=== PATIENT | male | born 1970 | race Hispanic/Latino ===

== ENCOUNTER 2016-10-25 20:41 | Observation (INO) | payer MEDICAID ==
[2016-10-25 20:57] VITALS: BMI 23.7
--- NOTE | 2016-10-25 21:13 | ED PDOC ---
Arrival/HPI - General Chief Complaint: Alcohol Ingestion Time Seen by Provider: 10/25/16 20:43 Historian: Patient - History of Present Illness Narrative History of Present Illness (Text): 10/25/16 21:10 Dionte Tapia is a 46 year old male who was brought to the emergency department via ambulance for public intoxication. Patient was found inebriated on the streets, nowhere to go, and was subsequently brought to the emergency department. Patient admits to drinking alcohol, but currently denies any somatic or psychological complaints. Patients states he feels fine and is insisting discharge. Symptom Onset: Gradual Severity Level: Mild Context: Street Past Medical History - Provider Review Nursing Documentation Reviewed: Yes - Infectious Disease Hx of Infectious Diseases: None - Tetanus Immunization Tetanus Immunization: Up to Date - Past Medical History Past Medical History: No Previous - Pulmonary Hx Asthma: Yes Hx Chronic Obstructive Pulmonary Disease (COPD): Yes - Hematological/Oncological Hx Hepatitis C: Yes - Psychiatric Hx Depression: No Hx Emotional Abuse: No Hx Physical Abuse: No Hx Substance Use: No - Past Surgical History Past Surgical History: No Previous - Anesthesia Hx Anesthesia: No - Suicidal Assessment Feels Threatened In Home Enviroment: No Family/Social History - Physician Review Nursing Documentation Reviewed: Yes Family/Social History: No Known Family HX Smoking Status: Heavy Smoker > 10 Cigarettes Daily Hx Alcohol Use: Yes (2 beers) Frequency of alcohol use: Few days per week Hx Substance Use: No Hx Substance Use Treatment: No Allergies/Home Meds Allergies/Adverse Reactions: Allergies No Known Allergies Allergy (Verified 06/16/13 14:58) Home Medications: Home Meds Medication Instructions Recorded Confirmed No Known Home Med 10/24/12 10/25/16 Review of Systems - Physician Review All systems were reviewed & negative as marked: Yes - Review of Systems Constitutional: Normal. absent: Fatigue, Fevers Respiratory: Normal. absent: SOB, Cough, Sputum Cardiovascular: Normal. absent: Chest Pain, Palpitations Gastrointestinal: absent: Abdominal Pain, Diarrhea, Nausea, Vomiting Neurological: Normal. absent: Headache, Dizziness Psychiatric: Normal, Other (intoxicated ) Physical Exam Vital Signs Reviewed: Yes Vital Signs Temp Pulse Resp BP Pulse Ox 10/25/16 21:14 98.2 F 102 H 16 108/67 97 Temperature: Afebrile Blood Pressure: Normal Pulse: Tachycardic Respiratory Rate: Normal Appearance: Positive for: Comfortable Pain Distress: None Mental Status: Positive for: Alert and Oriented X 3 - Systems Exam Head: Present: Atraumatic, Normocephalic Pupils: Present: PERRL Extroacular Muscles: Present: EOMI Conjunctiva: Present: Normal Mouth: Present: Moist Mucous Membranes Respiratory/Chest: Present: Clear to Auscultation, Good Air Exchange. No: Respiratory Distress, Accessory Muscle Use Cardiovascular: Present: Regular Rate and Rhythm, Normal S1, S2. No: Murmurs Abdomen: Present: Normal Bowel Sounds. No: Tenderness, Distention, Peritoneal Signs Upper Extremity: Present: Normal Inspection. No: Cyanosis, Edema Lower Extremity: Present: Normal Inspection. No: Edema Neurological: Present: GCS=15, CN II-XII Intact, Speech Normal, Motor Func Grossly Intact, Normal Sensory Function Skin: Present: Warm, Dry, Normal Color. No: Rashes Psychiatric: Present: Alert, Oriented x 3, Intoxicated Medical Decision Making ED Course and Treatment: 10/25/16 21:15 Impression: A 46 year old male who was brought to emergency department via ambulance for public intoxication. Differential Diagnosis included but are not limited to: alcohol intoxication. Progress Notes: 10/25/16 21:[address] patient on EDOBS for alcohol intoxication ED OBSERVATION Discharge: Yes Date of observation admission: 10/25/16 Time of observation admission: 21:10 - Observation admission statement Patient is being placed in observation because:: Alcohol intoxication - Goals of Observation Goals of observation are:: Pending sobriety and reevaluation - Progress Note Progress Note: 10/25/16 23:10 Patient resting comfortably with stable vitals. No new complaints. pending sobriety 10/26/16 01:10 Patient sleeping in the emergency room with stable vitals. No respiratory distress. 10/26/16 03:51 Patient is awake, alert and oriented X3. He is ambulatory in the emergency department with steady gait. Stable for discharge. - Scribe Statement The provider has reviewed the documentation as recorded by the Ruma Colmenares Provider Attestation: Provider Scribe Attestation: All medical record entries made by the Scribjamar were at my direction and personally dictated by me. I have reviewed the chart and agree that the record accurately reflects my personal performance of the history, physical exam, medical decision making, and the department course for this patient. I have also personally directed, reviewed, and agree with the discharge instructions and disposition. Disposition/Present on Arrival - Present on Arrival Any Indicators Present on Arrival: No History of DVT/PE: No History of Uncontrolled Diabetes: No Urinary Catheter: No History of Decub. Ulcer: No History Surgical Site Infection Following: None - Disposition Have Diagnosis and Disposition been Completed?: Yes Diagnosis: Alcohol intoxication Disposition: HOME/ ROUTINE Disposition Time: 03:48 Patient Problems: Current Active Problems Problem Status Onset Alcohol intoxication Acute Condition: GOOD
[2016-10-25 21:14] VITALS: RESP 16
[2016-10-26 04:32] VITALS: BP 114/82; PULSE 90; TEMP 98; O2SAT 100
== END 2016-10-26 03:48 | disposition home or self-care (01) ==
LOC: ED 20:41 → EROBSV 21:10
PROVIDERS: ADMIT Emergency Medicine; ATTEND Emergency Medicine
DX: F10.129 Alcohol abuse with intoxication, unspecified (principal)
CPT/HCPCS: 99284; G0378

== ENCOUNTER 2017-01-12 22:37 | Emergency (ER) | payer MEDICAID ==
[2017-01-12 22:37] VITALS: BMI 23.7
[2017-01-12 22:54] VITALS: TEMP 98.2
--- NOTE | 2017-01-12 23:13 | ED PDOC ---
Arrival/HPI - General Chief Complaint: Alcohol Ingestion Time Seen by Provider: 01/12/17 22:38 Historian: Patient - History of Present Illness Narrative History of Present Illness (Text): 01/12/17 23:12 A 46 year old male was brought in by EMS to the emergency department for alcohol intoxication. Patient admits to drinking alcohol tonight. Patient denies any other complaints at this time. Symptom Onset: Sudden Symptom Course: Unchanged Activities at Onset: Rest Associated Symptoms (Text): none Past Medical History - Provider Review Nursing Documentation Reviewed: Yes - Infectious Disease Hx of Infectious Diseases: None - Tetanus Immunization Tetanus Immunization: Up to Date - Past Medical History Past Medical History: No Previous - Cardiac Hx Cardiac Disorders: No - Pulmonary Hx Asthma: Yes Hx Chronic Obstructive Pulmonary Disease (COPD): Yes - Neurological Hx Neurological Disorder: No - HEENT Hx HEENT Disorder: No - Renal Hx Renal Disorder: No - Endocrine/Metabolic Hx Endocrine Disorders: No - Hematological/Oncological Hx Hepatitis C: Yes - Integumentary Hx Dermatological Disorder: No - Musculoskeletal/Rheumatological Hx Musculoskeletal Disorders: No - Gastrointestinal Hx Gastrointestinal Disorders: No - Genitourinary/Gynecological Hx Genitourinary Disorders: No - Psychiatric Hx Depression: No Hx Emotional Abuse: No Hx Physical Abuse: No Hx Substance Use: No - Past Surgical History Past Surgical History: No Previous - Anesthesia Hx Anesthesia: No - Suicidal Assessment Feels Threatened In Home Enviroment: No Family/Social History - Physician Review Nursing Documentation Reviewed: Yes Family/Social History: No Known Family HX Smoking Status: Heavy Smoker > 10 Cigarettes Daily Hx Alcohol Use: Yes Hx Substance Use: No Hx Substance Use Treatment: No Allergies/Home Meds Allergies/Adverse Reactions: Allergies No Known Allergies Allergy (Verified 01/12/17 22:52) Home Medications: Home Meds Medication Instructions Recorded Confirmed No Known Home Med 10/24/12 01/12/17 Review of Systems - Physician Review All systems were reviewed & negative as marked: Yes - Review of Systems Constitutional: absent: Fevers Cardiovascular: absent: Chest Pain Neurological: absent: Headache Physical Exam Vital Signs Reviewed: Yes Vital Signs Temp Pulse Resp BP Pulse Ox 01/13/17 06:00 85 18 126/77 97 01/13/17 04:15 82 18 124/76 96 01/13/17 02:37 78 18 125/74 96 01/13/17 00:37 88 20 125/77 97 01/12/17 22:50 98.2 F 90 20 127/77 95 Temperature: Afebrile Blood Pressure: Normal Pulse: Regular Respiratory Rate: Normal Appearance: Positive for: Comfortable Pain Distress: None Mental Status: Positive for: Alert and Oriented X 3 - Systems Exam Head: Present: Atraumatic, Normocephalic Pupils: Present: PERRL Extroacular Muscles: Present: EOMI Conjunctiva: Present: Normal Mouth: Present: Moist Mucous Membranes Neck: Present: Normal Range of Motion Respiratory/Chest: Present: Clear to Auscultation, Good Air Exchange. No: Respiratory Distress, Accessory Muscle Use Cardiovascular: Present: Regular Rate and Rhythm, Normal S1, S2. No: Murmurs Abdomen: Present: Normal Bowel Sounds. No: Tenderness, Distention, Peritoneal Signs Back: Present: Normal Inspection Upper Extremity: Present: Normal Inspection. No: Cyanosis, Edema Lower Extremity: Present: Normal Inspection. No: Edema Neurological: Present: GCS=15, CN II-XII Intact, Speech Normal Skin: Present: Warm, Dry, Normal Color. No: Rashes Psychiatric: Present: Alert, Oriented x 3 Medical Decision Making ED Course and Treatment: 01/12/17 23:11 Impression: A 46 year old male with alcohol intoxication. Plan: -- Reassess and disposition Prior Visits: Notes and results from previous visits were reviewed. Patient was last seen in the emergency department on 10/25/16 for evaluation of alcohol intoxication. Progress Notes: 01/13/17 02:00 Patient is resting comfortably. 01/13/17 04:00 Patient is sleeping, in no acute distress. 01/13/17 05:46 Patient is awake, alert and oriented with steady gait. - Lab Interpretations Lab Results: Lab Results 01/12/17 22:59: POC Glucose (mg/dL) 84 - Scribe Statement The provider has reviewed the documentation as recorded by the Ruma Peters Provider Scribe Attestation: All medical record entries made by the Scribjamar were at my direction and personally dictated by me. I have reviewed the chart and agree that the record accurately reflects my personal performance of the history, physical exam, medical decision making, and the department course for this patient. I have also personally directed, reviewed, and agree with the discharge instructions and disposition. Disposition/Present on Arrival - Present on Arrival Any Indicators Present on Arrival: No History of DVT/PE: No History of Uncontrolled Diabetes: No Urinary Catheter: No History of Decub. Ulcer: No History Surgical Site Infection Following: None - Disposition Have Diagnosis and Disposition been Completed?: Yes Diagnosis: Alcohol intoxication Disposition: HOME/ ROUTINE Disposition Time: 06:00 Condition: STABLE Discharge Instructions (ExitCare): Alcohol Intoxication (ED) Referrals: Alcoholics Anonymous [Outside] - Follow up with primary Forms: [employer] (New Zealander)
[2017-01-13 04:18] VITALS: RESP 18
[2017-01-13 06:08] VITALS: BP 126/77; PULSE 85; O2SAT 97
== END 2017-01-13 06:08 | disposition home or self-care (01) ==
LOC: ED 22:37
DX: F10.129 Alcohol abuse with intoxication, unspecified (principal)

== ENCOUNTER 2018-02-28 23:06 | Emergency (ER) | payer MEDICAID ==
[2018-02-28 23:07] VITALS: BMI 24.4
[2018-02-28 23:35] VITALS: RESP 18
--- NOTE | 2018-02-28 23:55 | ED PDOC ---
Arrival/HPI - General Chief Complaint: Trauma Time Seen by Provider: 02/28/18 23:42 Historian: Patient - History of Present Illness Narrative History of Present Illness (Text): 02/28/18 23:52 47 year old male, with a past medical history of alcohol abuse, presents to the emergency department by EMS with head laceration. Patient admits to drinking alcohol tonight. Patient states he was on the couch then fell off, hitting head on the table. Patient denies any headache or dizziness. Patient denies any fevers, chills, chest pain, shortness of breath, cough, abdominal pain, nausea, vomiting, diarrhea, or any other complaints. Time/Duration: Prior to Arrival Symptom Onset: Sudden Symptom Course: Unchanged Context: Home Past Medical History - Provider Review Nursing Documentation Reviewed: Yes - Infectious Disease Hx of Infectious Diseases: None - Tetanus Immunization Tetanus Immunization: Up to Date - Past Medical History Past Medical History: No Previous - Cardiac Hx Cardiac Disorders: No Hx Hypertension: Yes - Pulmonary Hx Asthma: Yes Hx Chronic Obstructive Pulmonary Disease (COPD): Yes - Neurological Hx Neurological Disorder: No - HEENT Hx Cataracts: Yes Other/Comment: R eye cataract - Renal Hx Renal Disorder: No Other/Comment: Questionable L Renal CA - Endocrine/Metabolic Hx Endocrine Disorders: No - Hematological/Oncological Hx Hepatitis C: Yes - Integumentary Hx Dermatological Disorder: No - Musculoskeletal/Rheumatological Hx Arthritis: Yes - Gastrointestinal Hx Gastrointestinal Disorders: No - Genitourinary/Gynecological Hx Genitourinary Disorders: No - Psychiatric Hx Depression: No Hx Emotional Abuse: No Hx Physical Abuse: No Hx Substance Use: No - Past Surgical History Past Surgical History: No Previous - Anesthesia Hx Anesthesia: No - Suicidal Assessment Feels Threatened In Home Enviroment: No Family/Social History - Physician Review Nursing Documentation Reviewed: Yes Family/Social History: No Known Family HX Smoking Status: Light Smoker < 10 Cigarettes Daily Hx Alcohol Use: Yes Frequency of alcohol use: Daily Hx Substance Use: No Hx Substance Use Treatment: No Allergies/Home Meds Allergies/Adverse Reactions: Allergies No Known Allergies Allergy (Verified 01/12/17 22:52) Home Medications: Home Meds Medication Instructions Recorded Confirmed Ergocalciferol [Drisdol 50,000 1 cap PO Q7D 04/02/17 04/02/17 Intl Units Cap] Review of Systems - Physician Review All systems were reviewed & negative as marked: Yes - Review of Systems Constitutional: absent: Fevers, Night Sweats Respiratory: absent: SOB, Cough Cardiovascular: absent: Chest Pain Gastrointestinal: absent: Abdominal Pain, Diarrhea, Nausea, Vomiting Skin: Laceration Neurological: absent: Headache, Dizziness Physical Exam Vital Signs Reviewed: Yes Vital Signs Temp Pulse Resp BP Pulse Ox 02/28/18 23:34 98.6 F 90 18 125/90 98 Temperature: Afebrile Blood Pressure: Normal Pulse: Regular Respiratory Rate: Normal Appearance: Positive for: Well-Appearing, Non-Toxic, Comfortable Pain Distress: None Mental Status: Positive for: Alert and Oriented X 3 - Systems Exam Head: Present: Normocephalic, Laceration (left temporal area) Pupils: Present: PERRL Extroacular Muscles: Present: EOMI Conjunctiva: Present: Normal Mouth: Present: Moist Mucous Membranes Neck: Present: Normal Range of Motion Respiratory/Chest: Present: Clear to Auscultation, Good Air Exchange. No: Respiratory Distress, Accessory Muscle Use Cardiovascular: Present: Regular Rate and Rhythm, Normal S1, S2. No: Murmurs Abdomen: No: Tenderness, Distention, Peritoneal Signs Back: Present: Normal Inspection Upper Extremity: Present: Normal Inspection. No: Cyanosis, Edema Lower Extremity: Present: Normal Inspection. No: Edema Neurological: Present: GCS=15, CN II-XII Intact, Speech Normal Skin: Present: Warm, Dry, Normal Color, Laceration (Y shaped lac over temporal area). No: Rashes Psychiatric: Present: Alert, Oriented x 3, Normal Insight, Normal Concentration Medical Decision Making ED Course and Treatment: 02/28/18 23:57 Impression: 47 year old male presents for head laceration and alcohol intoxication. Plan: -- CT Head -- Reassess and disposition Prior Visits: Notes and results from previous visits were reviewed. Progress Notes: 03/01/18 04:32 CT SCAN OF THE BRAIN WITHOUT IV CONTRAST CLINICAL INDICATION: Fall. TECHNIQUE: Axial and reformatted sagittal and coronal images of the brain obtained without IV contrast administration. Normal size of the ventricles and extra-axial spaces for the patient's age. Normal white matter tracts of the supratentorial brain. Normal basal ganglia and thalami. Normal brainstem. Normal cerebellum. There is no demonstrated extra-axial, intraparenchymal, or intraventricular hemorrhage. There are no findings of an acute ischemic infarction. Normal calvarium. There is no demonstrated fracture. Normal soft tissue structures. Normal visualized paranasal sinuses. IMPRESSION: Normal unenhanced CT scan of the brain. - RAD Interpretation Radiology Orders: 02/28/18 23:43 HEAD W/O CONTRAST [CT] Stat Procedure: Wound Repair - Time Performed Time Performed: 01:41 - Time Out Time Out: Site verified - Consent Obtained Consent obtained: Verbal - Performed by Performed by: Attending Physician - Indications Indication(s):: Laceration - Location Location:: Left (temporal area) Shape:: Stellate Dimensions Length cm: 2.5 - Debris Debris:: None - Wound repair method Flores:: Tissue glue - Muscle repiar layer closed with Muscle repair layer closed with:: Wound well approximated, Dressing applied - Patient tolerated procedure Patient Tolerated Procedure:: Well - Scribe Statement The provider has reviewed the documentation as recorded by the Scribe Charlie Shearer Provider Scribe Attestation: All medical record entries made by the Scribe were at my direction and personally dictated by me. I have reviewed the chart and agree that the record accurately reflects my personal performance of the history, physical exam, medical decision making, and the department course for this patient. I have also personally directed, reviewed, and agree with the discharge instructions and disposition. Disposition/Present on Arrival - Present on Arrival Any Indicators Present on Arrival: No History of DVT/PE: No History of Uncontrolled Diabetes: No Urinary Catheter: No History of Decub. Ulcer: No History Surgical Site Infection Following: None - Disposition Have Diagnosis and Disposition been Completed?: Yes Diagnosis: Alcohol abuse, Laceration of face Disposition: HOME/ ROUTINE Disposition Time: 07:00 Condition: GOOD Discharge Instructions (ExitCare): Laceration Repair With Glue (DC), Alcohol Abuse and Alcoholism (DC) Referrals: Ethan Lisa MD [Primary Care Provider] - Follow up with primary Forms: [employer] (Polish)
--- NOTE | 2018-03-01 07:17 | ED PDOC ---
Physical Exam Vital Signs Temp Pulse Resp BP Pulse Ox 03/01/18 04:42 78 18 132/88 96 02/28/18 23:34 98.6 F 90 18 125/90 98 - Systems Exam Pupils: Present: PERRL Extroacular Muscles: Present: EOMI Conjunctiva: Present: Normal Ears: Present: Normal Mouth: Present: Moist Mucous Membranes Neck: Present: Normal Range of Motion, Trachea Midline. No: Meningeal Signs, MIDLINE TENDERNESS, Paraspinal Tenderness, JVD, Lymphadenopathy Respiratory/Chest: Present: Clear to Auscultation, Good Air Exchange Cardiovascular: Present: Regular Rate and Rhythm, Normal S1, S2. No: Murmurs Abdomen: No: Tenderness, Distention Upper Extremity: Present: Normal Inspection, Normal ROM, NORMAL PULSES, Capillary Refill < 2s Lower Extremity: Present: Normal Inspection, Capillary Refill < 2 s Neurological: Present: GCS=15, CN II-XII Intact, Speech Normal, Normal Cerebellar Funct, Gait Normal Skin: Present: Warm, Dry. No: Rashes Psychiatric: Present: Alert, Oriented x 3, Normal Insight Medical Decision Making ED Course and Treatment: 03/01/18 07:00 Patient endorsed to me by Dr. Dyson. Patient is a 47 year old male with history of EtOH abuse, brought in for intoxication. Patient had fallen on his head and sustained a laceration to the left eyebrow region, repaired by Dr. Dyson. CT Head shows negative findings. Currently pending sobriety. 03/01/18 09:20 clinically sober, ambulating well, no signs of withdrawal. L eyebrow lac w/ good hemostasis s/p closure by Dr. Dyson. Normal neuro exam. Clear for d/c home w/ return indications and followup. Endorsed to patient to decrease ETOH intake and importance of followup. Pt agreeable to plan. Re-evaluation Time: 09:20 Reassessment Condition: Re-examined - RAD Interpretation Radiology Orders: 02/28/18 23:43 HEAD W/O CONTRAST [CT] Stat - Medication Orders Current Medication Orders: Discontinued Medications Lorazepam (Ativan) 1 mg IM ONCE ONE; Protocol Stop: 03/01/18 01:02 Last Admin: 03/01/18 01:11 Dose: 1 mg IM Administration Charges Document 03/01/18 01:11 IT (Rec: 12/05/18 01:11 IT [id number]) Injection Site MAR Injection Site Left Deltoid Charges for Administration # of IM Administrations 1 - Scribe Statement The provider has reviewed the documentation as recorded by the Colbyibjamar Cesar Provider Scribe Attestation: All medical record entries made by the Scribe were at my direction and personally dictated by me. I have reviewed the chart and agree that the record accurately reflects my personal performance of the history, physical exam, medical decision making, and the department course for this patient. I have also personally directed, reviewed, and agree with the discharge instructions and disposition. Disposition/Present on Arrival - Present on Arrival Any Indicators Present on Arrival: No History of DVT/PE: No History of Uncontrolled Diabetes: No Urinary Catheter: No History of Decub. Ulcer: No History Surgical Site Infection Following: None - Disposition Have Diagnosis and Disposition been Completed?: Yes Diagnosis: Alcohol abuse, Laceration of face Disposition: HOME/ ROUTINE Disposition Time: 09:21 Patient Problems: Current Active Problems Problem Status Onset Alcohol abuse Acute Laceration of face Acute Condition: GOOD Discharge Instructions (ExitCare): Laceration Repair With Glue (DC), Alcohol Abuse and Alcoholism (DC) Referrals: Ethan Lisa MD [Primary Care Provider] - Follow up with primary Forms: [employer] (Algerian)
--- NOTE | 2018-03-01 08:12 | CT ---
Date of service: 03/01/2018 PROCEDURE: CT HEAD WITHOUT CONTRAST. HISTORY: fall COMPARISON: None available. TECHNIQUE: Axial computed tomography images were obtained through the head/brain without intravenous contrast. Radiation dose: Total exam DLP = 1040.31 mGy-cm. This CT exam was performed using one or more of the following dose reduction techniques: Automated exposure control, adjustment of the mA and/or kV according to patient size, and/or use of iterative reconstruction technique. FINDINGS: HEMORRHAGE: No intracranial hemorrhage. BRAIN: No mass effect or edema. No atrophy or chronic microvascular ischemic changes. VENTRICLES: No hydrocephalus. CALVARIUM: Unremarkable. PARANASAL SINUSES: Mucosal thickening involving bilateral maxillary sinuses, and the left sphenoid sinus. Mild mucosal thickening of the ethmoid air cells. MASTOID AIR CELLS: Unremarkable as visualized. No inflammatory changes. OTHER FINDINGS: Partial opacification of bilateral external auditory canals, likely cerumen. IMPRESSION: No acute intracranial pathology identified. Incidental findings as above. Preliminary impression was provided by Juv Acessórios.
[2018-03-01 09:34] VITALS: TEMP 98; O2SAT 98
[2018-03-01 09:36] VITALS: BP 130/89; PULSE 72
== END 2018-03-01 09:35 | disposition home or self-care (01) ==
LOC: ED 23:06
DX: S01.81XA Laceration without foreign body of other part of head, initial encounter (principal); W07.XXXA Fall from chair, initial encounter; Y92.89 Other specified places as the place of occurrence of the external cause; F10.10 Alcohol abuse, uncomplicated
CPT/HCPCS: 70450; 96372; 99285; J2060

== ENCOUNTER 2018-04-05 20:41 | Emergency (ER) | payer MEDICAID ==
[2018-04-05 20:41] VITALS: BMI 24.4
--- NOTE | 2018-04-05 20:49 | ED PDOC ---
Arrival/HPI - General Chief Complaint: Alcohol Ingestion Time Seen by Provider: 04/05/18 20:47 Historian: Patient - History of Present Illness Narrative History of Present Illness (Text): 04/05/18 20:49 Dionte Tapia is a 47 year old male, whose past medical history includes alcohol abuse, who presents to the Emergency Department brought in by EMS for public intoxication. Patient was found outside inebriated and admits to drinking alcohol tonight. Patient states he feels fine and denies any somatic complaints. Symptom Onset: Gradual Symptom Course: Unchanged Activities at Onset: Light Context: Home Past Medical History - Provider Review Nursing Documentation Reviewed: Yes - Infectious Disease Hx of Infectious Diseases: None - Tetanus Immunization Tetanus Immunization: Up to Date - Past Medical History Past Medical History: No Previous - Cardiac Hx Cardiac Disorders: No Hx Hypertension: Yes - Pulmonary Hx Asthma: Yes Hx Chronic Obstructive Pulmonary Disease (COPD): Yes - Neurological Hx Neurological Disorder: No - HEENT Hx Cataracts: Yes Other/Comment: R eye cataract - Renal Hx Renal Disorder: No Other/Comment: Questionable L Renal CA - Endocrine/Metabolic Hx Endocrine Disorders: No - Hematological/Oncological Hx Hepatitis C: Yes - Integumentary Hx Dermatological Disorder: No - Musculoskeletal/Rheumatological Hx Arthritis: Yes - Gastrointestinal Hx Gastrointestinal Disorders: No - Genitourinary/Gynecological Hx Genitourinary Disorders: No - Psychiatric Hx Depression: No Hx Emotional Abuse: No Hx Physical Abuse: No Hx Substance Use: No - Past Surgical History Past Surgical History: No Previous - Anesthesia Hx Anesthesia: No - Suicidal Assessment Feels Threatened In Home Enviroment: No Family/Social History - Physician Review Nursing Documentation Reviewed: Yes Family/Social History: Unknown Family HX Smoking Status: Light Smoker < 10 Cigarettes Daily Hx Alcohol Use: Yes Hx Substance Use: No Hx Substance Use Treatment: No Allergies/Home Meds Allergies/Adverse Reactions: Allergies No Known Allergies Allergy (Verified 01/12/17 22:52) Home Medications: Home Meds Medication Instructions Recorded Confirmed Ergocalciferol [Drisdol 50,000 1 cap PO Q7D 04/02/17 04/02/17 Intl Units Cap] Review of Systems - Physician Review All systems were reviewed & negative as marked: Yes - Review of Systems Constitutional: Normal. absent: Fevers Eyes: Normal ENT: Normal Respiratory: Normal. absent: SOB, Cough Cardiovascular: Normal. absent: Chest Pain Gastrointestinal: Normal. absent: Abdominal Pain, Diarrhea, Nausea, Vomiting Genitourinary Male: Normal. absent: Dysuria, Frequency, Hematuria, Urinary Output Changes Musculoskeletal: Normal. absent: Back Pain, Neck Pain Skin: Normal. absent: Rash Neurological: Normal. absent: Headache, Dizziness Endocrine: Normal Hemo/Lymphatic: Normal Psychiatric: Normal Physical Exam Vital Signs Reviewed: Yes Vital Signs Temp Pulse Resp BP Pulse Ox 04/05/18 20:44 97.9 F 101 H 18 141/81 99 Temperature: Afebrile Blood Pressure: Normal Pulse: Regular Respiratory Rate: Normal Pain Distress: None Mental Status: Positive for: Alert and Oriented X 3 - Systems Exam Head: Present: Atraumatic, Normocephalic Pupils: Present: PERRL Extroacular Muscles: Present: EOMI Conjunctiva: Present: Normal Mouth: Present: Moist Mucous Membranes Neck: Present: Normal Range of Motion Respiratory/Chest: Present: Clear to Auscultation, Good Air Exchange. No: Respiratory Distress, Accessory Muscle Use Cardiovascular: Present: Regular Rate and Rhythm, Normal S1, S2. No: Murmurs Abdomen: No: Tenderness, Distention, Peritoneal Signs Back: Present: Normal Inspection Upper Extremity: Present: Normal Inspection. No: Cyanosis, Edema Lower Extremity: Present: Normal Inspection. No: Edema Neurological: Present: GCS=15, CN II-XII Intact, Speech Normal Skin: Present: Warm, Dry, Normal Color. No: Rashes Psychiatric: Present: Alert, Oriented x 3, Intoxicated Medical Decision Making ED Course and Treatment: 04/05/18 20:49 Impression: 47 year old male brought in for public intoxication. Plan: -- Reassess and disposition Prior Visits: Notes and results from previous visits were reviewed. Progress Notes: 04/06/18 05:55 On re-evaluation, pt is awake, alert, and in no acute distress. Ambulating with steady gait, in no acute distress. Clinically sober. Pt stable for discharge. - Scribe Statement The provider has reviewed the documentation as recorded by the Ruma Neely Provider Scribe Attestation: All medical record entries made by the Scribe were at my direction and personally dictated by me. I have reviewed the chart and agree that the record accurately reflects my personal performance of the history, physical exam, medical decision making, and the department course for this patient. I have also personally directed, reviewed, and agree with the discharge instructions and disposition. Disposition/Present on Arrival - Present on Arrival Any Indicators Present on Arrival: No History of DVT/PE: No History of Uncontrolled Diabetes: No Urinary Catheter: No History of Decub. Ulcer: No History Surgical Site Infection Following: None - Disposition Have Diagnosis and Disposition been Completed?: Yes Diagnosis: Alcohol abuse Disposition: HOME/ ROUTINE Disposition Time: 06:00 Patient Plan: Discharge Patient Problems: Current Active Problems Problem Status Onset Alcohol abuse Acute Condition: STABLE Discharge Instructions (ExitCare): Alcohol Abuse and Alcoholism (DC) Referrals: Ethan Lisa MD [Primary Care Provider] - Follow up with primary Alcoholics Anonymous [Outside] - Follow up with primary Forms: [employer] (Wolof)
[2018-04-06 06:17] VITALS: RESP 18; O2SAT 100
[2018-04-06 06:18] VITALS: BP 136/77; PULSE 92; TEMP 98.1
== END 2018-04-06 06:20 | disposition home or self-care (01) ==
LOC: ED 20:41
DX: F10.10 Alcohol abuse, uncomplicated (principal)

== ENCOUNTER 2018-06-03 01:15 | Emergency (ER) | payer MEDICAID | END 2018-06-03 06:45 | disposition home or self-care (01) | LOC: ED 01:15 ==

== ENCOUNTER 2018-06-20 23:22 | Emergency (ER) | payer MEDICAID ==
[2018-06-20 23:33] VITALS: BMI 26.4
[2018-06-20 23:34] VITALS: RESP 18; TEMP 97.6
--- NOTE | 2018-06-20 23:49 | ED PDOC ---
Arrival/HPI - General Chief Complaint: Alcohol Ingestion Time Seen by Provider: 06/20/18 23:40 Historian: Patient - History of Present Illness Narrative History of Present Illness (Text): 06/20/18 23:58 48 year old male, whose past medical history includes alcohol abuse, who presents to the ED for alcohol intoxication. Patient was found outside inebriated and admits to drinking alcohol tonight. Patient states he feels fine and would like to rest until morning. Patient denies any somatic complaints. Time/Duration: 4-6 hours Symptom Onset: Gradual Symptom Course: Unchanged Activities at Onset: Light Context: Street Past Medical History - Provider Review Nursing Documentation Reviewed: Yes - Infectious Disease Hx of Infectious Diseases: None - Tetanus Immunization Tetanus Immunization: Up to Date - Past Medical History Past Medical History: No Previous - Cardiac Hx Cardiac Disorders: Yes Hx Hypertension: Yes - Pulmonary Hx Respiratory Disorders: Yes Hx Asthma: Yes Hx Chronic Obstructive Pulmonary Disease (COPD): Yes - Neurological Hx Neurological Disorder: No - HEENT Hx HEENT Disorder: Yes Hx Cataracts: Yes Other/Comment: R eye cataract - Renal Hx Renal Disorder: No Other/Comment: Questionable L Renal CA - Endocrine/Metabolic Hx Endocrine Disorders: No - Hematological/Oncological Hx Blood Disorders: Yes Hx Hepatitis C: Yes - Integumentary Hx Dermatological Disorder: No - Musculoskeletal/Rheumatological Hx Musculoskeletal Disorders: Yes Hx Arthritis: Yes - Gastrointestinal Hx Gastrointestinal Disorders: No - Genitourinary/Gynecological Hx Genitourinary Disorders: No - Psychiatric Hx Psychophysiologic Disorder: No Hx Substance Use: No - Past Surgical History Past Surgical History: No Previous - Anesthesia Hx Anesthesia: No - Suicidal Assessment Feels Threatened In Home Enviroment: No Family/Social History - Physician Review Nursing Documentation Reviewed: Yes Family/Social History: Unknown Family HX Smoking Status: Light Smoker < 10 Cigarettes Daily Hx Alcohol Use: Yes Hx Substance Use: No Hx Substance Use Treatment: No Allergies/Home Meds Allergies/Adverse Reactions: Allergies No Known Allergies Allergy (Verified 01/12/17 22:52) Home Medications: Home Meds Medication Instructions Recorded Confirmed Ergocalciferol [Drisdol 50,000 1 cap PO Q7D 04/02/17 04/02/17 Intl Units Cap] Review of Systems - Physician Review All systems were reviewed & negative as marked: Yes - Review of Systems Constitutional: Normal. absent: Fevers Eyes: Normal ENT: Normal Respiratory: Normal. absent: SOB, Cough Cardiovascular: Normal. absent: Chest Pain Gastrointestinal: Normal. absent: Abdominal Pain, Diarrhea, Nausea, Vomiting Genitourinary Male: Normal. absent: Dysuria, Frequency, Hematuria, Urinary Output Changes Musculoskeletal: Normal. absent: Back Pain, Neck Pain Skin: Normal. absent: Rash Neurological: Normal. absent: Headache, Dizziness Endocrine: Normal Hemo/Lymphatic: Normal Psychiatric: Normal Physical Exam Vital Signs Reviewed: Yes Vital Signs Temp Pulse Resp BP Pulse Ox 06/20/18 23:33 97.6 F 86 18 156/104 H 96 Temperature: Afebrile Blood Pressure: Hypertensive Pulse: Regular Respiratory Rate: Normal Appearance: Positive for: Well-Appearing, Comfortable Pain Distress: None Mental Status: Positive for: Alert and Oriented X 3, other (Intoxicated) - Systems Exam Head: Present: Atraumatic, Normocephalic Pupils: Present: PERRL Extroacular Muscles: Present: EOMI Conjunctiva: Present: Normal Mouth: Present: Moist Mucous Membranes Neck: Present: Normal Range of Motion Respiratory/Chest: Present: Clear to Auscultation, Good Air Exchange. No: Respiratory Distress, Accessory Muscle Use Cardiovascular: Present: Regular Rate and Rhythm, Normal S1, S2. No: Murmurs Abdomen: No: Tenderness, Distention, Peritoneal Signs Back: Present: Normal Inspection Upper Extremity: Present: Normal Inspection. No: Cyanosis, Edema Lower Extremity: Present: Normal Inspection. No: Edema Neurological: Present: GCS=15, CN II-XII Intact, Speech Normal Skin: Present: Warm, Dry, Normal Color. No: Rashes Psychiatric: Present: Alert, Oriented x 3, Intoxicated Medical Decision Making ED Course and Treatment: 06/21/18 00:08 Impression: 48 year old male who presents to the ED for alcohol intoxication. Plan: -- Reassess and disposition Progress Notes: - Scribe Statement The provider has reviewed the documentation as recorded by the Scribe Angelina Pierce training with Eva Neely. All medical record entries made by the Scribe were at my direction and personally dictated by me. I have reviewed the chart and agree that the record accurately reflects my personal performance of the history, physical exam, medical decision making, and the department course for this patient. I have also personally directed, reviewed, and agree with the discharge instructions and disposition. Disposition/Present on Arrival - Present on Arrival Any Indicators Present on Arrival: No History of DVT/PE: No History of Uncontrolled Diabetes: No Urinary Catheter: No History of Decub. Ulcer: No History Surgical Site Infection Following: None - Disposition Have Diagnosis and Disposition been Completed?: Yes Diagnosis: Alcohol intoxication Disposition: HOME/ ROUTINE Disposition Time: 06:27 Condition: IMPROVED Discharge Instructions (ExitCare): Alcohol Abuse and Alcoholism (DC) Forms: [facility]: [facility] [facility] (Japanese)
[2018-06-21 07:08] VITALS: BP 128/82; PULSE 99; O2SAT 95
--- NOTE | 2018-06-21 09:54 | RAD ---
Date of service: 06/21/2018 PROCEDURE: Right Wrist Radiographs. HISTORY: fall COMPARISON: None. TECHNIQUE: 4 views obtained. FINDINGS: BONES: Normal. No fracture. JOINTS: Normal. No dislocation. SOFT TISSUES: Normal. OTHER FINDINGS: None. IMPRESSION: Normal right wrist radiographs.
--- NOTE | 2018-06-21 09:56 | RAD ---
PROCEDURE: Left Hand Radiographs. HISTORY: pain COMPARISON: None. TECHNIQUE: 3 views obtained. FINDINGS: BONES: Normal. No fracture. JOINTS: Normal. No osteoarthritic changes. SOFT TISSUES: Normal. OTHER FINDINGS: None. IMPRESSION: Normal left hand radiographs.
== END 2018-06-21 07:08 | disposition home or self-care (01) ==
LOC: ED 23:22
DX: F10.129 Alcohol abuse with intoxication, unspecified (principal); F17.210 Nicotine dependence, cigarettes, uncomplicated; I10 Essential (primary) hypertension; J44.9 Chronic obstructive pulmonary disease, unspecified

== ENCOUNTER 2018-08-27 22:31 | Emergency (ER) | payer MEDICAID ==
[2018-08-27 22:50] VITALS: RESP 18; TEMP 98; BMI 23.0
[2018-08-28 00:15] LABS: BASO # 0.01 K/mm3 (0.0-2.0); BASO % 0.1 % (0.0-3.0); EOS # 0.2 (0.0-0.7); EOS % 1.9 % (1.5-5.0); HEMOGLOBIN 13.1 g/dL (14.0-18.0); LYMPH # 2.3 (1.2-3.4); LYMPH % 24.8 % (22.0-35.0); MEAN CELL VOLUME 92.5 fl (80.0-105.0); MEAN CORPUSCULAR HEMOGLOBIN 31.6 pg (25.0-35.0); MEAN CORPUSCULAR HGB CONC 34.1 g/dl (31.0-37.0); MEAN PLATELET VOLUME 9.7 fl (7.0-11.0); MONO # 0.5 (0.1-0.6); MONO % 4.9 % (1.0-6.0); RBC 4.15 10^6/uL (3.5-6.1); WHITE BLOOD COUNT 9.2 10^3/uL (4.5-11.0)
[2018-08-28 00:19] LABS: URINE BILIRUBIN NEGATIVE (NEGATIVE); URINE BLOOD NEGATIVE (NEGATIVE); URINE GLUCOSE (UA) NEGATIVE (NEGATIVE); URINE LEUKOCYTE ESTERASE NEGATIVE Leu/uL (NEGATIVE); URINE PROTEIN NEGATIVE mg/dL (<30 mg/dL); URINE UROBILINOGEN 0.2 E.U./dL (<1 E.U./dL)
[2018-08-28 00:20] LABS: URINE APPEARANCE CLEAR (CLEAR); URINE COLOR STRAW (YELLOW)
[2018-08-28 00:29] LABS: ACETAMINOPHEN < 10.0 ug/ml (10.0-20.0); SALICYLATE < 1 mg/dL (2.0-20.0)
[2018-08-28 00:32] LABS: ALB/GLOB RATIO 1.2 (1.1-1.8); ALBUMIN 4.5 g/dL (3.0-4.8); ALT/SGPT 61 U/L (7-56); AST/SGOT 66 U/L (17-59); BLOOD UREA NITROGEN 12 mg/dL (7-21); CALCIUM 8.6 mg/dL (8.4-10.5); GFR NON-AFRICAN AMERICAN > 60; LIPASE 63 U/L (23-300)
--- NOTE | 2018-08-28 00:40 | ED PDOC ---
Arrival/HPI - General Historian: Patient - History of Present Illness Narrative History of Present Illness (Text): 08/28/18 00:38 48yo male who present with complaint of RLQ x 1nonth. States his PMD told him to come to ED 3weeks ago for evaluation, but he never did. States he decided to come o the ED tonight for evaluation. He had alcohol breath and he admitted to taking 2bottles of beer. He otherwise denies any other complaint. <Gera Clark A - Last Filed: 08/28/18 00:40> <Tino Segal - Last Filed: 08/28/18 01:19> - General Chief Complaint: Abdominal Pain Past Medical History - Provider Review Nursing Documentation Reviewed: Yes - Infectious Disease Hx of Infectious Diseases: None - Tetanus Immunization Tetanus Immunization: Up to Date - Past Medical History Past Medical History: No Previous - Cardiac Hx Cardiac Disorders: Yes Hx Hypertension: Yes - Pulmonary Hx Respiratory Disorders: Yes Hx Asthma: Yes Hx Chronic Obstructive Pulmonary Disease (COPD): Yes - Neurological Hx Neurological Disorder: No - HEENT Hx HEENT Disorder: Yes Hx Cataracts: Yes Other/Comment: R eye cataract - Renal Hx Renal Disorder: No Other/Comment: Questionable L Renal CA - Endocrine/Metabolic Hx Endocrine Disorders: No - Hematological/Oncological Hx Blood Disorders: Yes Hx Hepatitis C: Yes - Integumentary Hx Dermatological Disorder: No - Musculoskeletal/Rheumatological Hx Musculoskeletal Disorders: Yes Hx Arthritis: Yes - Gastrointestinal Hx Gastrointestinal Disorders: No - Genitourinary/Gynecological Hx Genitourinary Disorders: No - Psychiatric Hx Depression: Yes Hx Substance Use: No - Past Surgical History Past Surgical History: No Previous - Anesthesia Hx Anesthesia: No - Suicidal Assessment Feels Threatened In Home Enviroment: No <Gera Clark A - Last Filed: 08/28/18 00:40> Family/Social History - Physician Review Nursing Documentation Reviewed: Yes Family/Social History: Unknown Family HX Smoking Status: Light Smoker < 10 Cigarettes Daily Hx Alcohol Use: Yes Hx Substance Use: No Hx Substance Use Treatment: No <Gera Clark A - Last Filed: 08/28/18 00:40> Allergies/Home Meds <Gera Clark A - Last Filed: 08/28/18 00:40> <Tino Segla - Last Filed: 08/28/18 01:19> Allergies/Adverse Reactions: Allergies No Known Allergies Allergy (Verified 08/27/18 22:50) Home Medications: Home Meds Medication Instructions Recorded Confirmed Ergocalciferol [Drisdol 50,000 1 cap PO Q7D 04/02/17 04/02/17 Intl Units Cap] Review of Systems - Physician Review All systems were reviewed & negative as marked: Yes - Review of Systems Constitutional: Normal Eyes: Normal ENT: Normal Respiratory: Normal Cardiovascular: Normal Gastrointestinal: absent: Abdominal Pain, Stool Changes, Constipation, Diarrhea, Nausea, Vomiting, Hematochezia, Hematemesis Genitourinary Male: Normal Musculoskeletal: Normal Skin: Normal Neurological: Normal Endocrine: Normal Hemo/Lymphatic: Normal Psychiatric: Normal <DiralfredoHappiness A - Last Filed: 08/28/18 00:40> Physical Exam Vital Signs Reviewed: Yes Vital Signs Temp Pulse Resp BP Pulse Ox 08/27/18 22:50 98 F 100 H 18 138/75 95 Temperature: Afebrile Blood Pressure: Normal Pulse: Regular Respiratory Rate: Normal Appearance: Positive for: Well-Appearing, Non-Toxic, Comfortable Pain Distress: None Mental Status: Positive for: Alert and Oriented X 3 - Systems Exam Head: Present: Atraumatic, Normocephalic Pupils: Present: PERRL Extroacular Muscles: Present: EOMI Conjunctiva: Present: Normal Ears: Present: Normal Mouth: Present: Moist Mucous Membranes Neck: Present: Normal Range of Motion Respiratory/Chest: Present: Clear to Auscultation, Good Air Exchange. No: Respiratory Distress, Accessory Muscle Use Cardiovascular: Present: Regular Rate and Rhythm, Normal S1, S2. No: Murmurs Abdomen: No: Tenderness, Distention, Peritoneal Signs Back: Present: Normal Inspection Upper Extremity: Present: Normal Inspection. No: Cyanosis, Edema Lower Extremity: Present: Normal Inspection. No: Edema Neurological: Present: GCS=15, CN II-XII Intact, Speech Normal Skin: Present: Warm, Dry, Normal Color. No: Rashes Psychiatric: Present: Alert, Oriented x 3, Normal Insight, Normal Concentration <Diru,Happiness A - Last Filed: 08/28/18 00:40> Vital Signs Temp Pulse Resp BP Pulse Ox 08/27/18 22:50 98 F 100 H 18 138/75 95 <Tino Segal - Last Filed: 08/28/18 01:19> Medical Decision Making - Lab Interpretations Lab Results: Total Bilirubin 0.4 mg/dL (0.2-1.3) 08/27/18 23:41 AST 66 U/L (17-59) H 08/27/18 23:41 ALT 61 U/L (7-56) H 08/27/18 23:41 Alkaline Phosphatase 112 U/L (38-126) 08/27/18 23:41 Total Protein 8.1 g/dL (5.8-8.3) 08/27/18 23:41 Albumin 4.5 g/dL (3.0-4.8) 08/27/18 23:41 Globulin 3.6 gm/dL 08/27/18 23:41 Albumin/Globulin Ratio 1.2 (1.1-1.8) 08/27/18 23:41 Lipase 63 U/L (23-300) 08/27/18 23:41 Urine Color Straw (YELLOW) 08/27/18 23:56 Urine Appearance Clear (CLEAR) 08/27/18 23:56 Urine pH 6.0 (4.7-8.0) 08/27/18 23:56 Ur Specific [place] 1.010 (1.005-1.035) 08/27/18 23:56 Urine Protein Negative mg/dL (<30 mg/dL) 08/27/18 23:56 Urine Glucose (UA) Negative mg/dL (NEGATIVE) 08/27/18 23:56 Urine Ketones Negative mg/dL (NEGATIVE) 08/27/18 23:56 Urine Blood Negative (NEGATIVE) 08/27/18 23:56 Urine Nitrate Negative (NEGATIVE) 08/27/18 23:56 Urine Bilirubin Negative (NEGATIVE) 08/27/18 23:56 Urine Urobilinogen 0.2 E.U./dL (<1 E.U./dL) 08/27/18 23:56 Ur Leukocyte Esterase Negative Sunny/uL (NEGATIVE) 08/27/18 23:56 <Diru,Happiness A - Last Filed: 08/28/18 00:40> - Lab Interpretations Lab Results: Total Bilirubin 0.4 mg/dL (0.2-1.3) 08/27/18 23:41 AST 66 U/L (17-59) H 08/27/18 23:41 ALT 61 U/L (7-56) H 08/27/18 23:41 Alkaline Phosphatase 112 U/L (38-126) 08/27/18 23:41 Total Protein 8.1 g/dL (5.8-8.3) 08/27/18 23:41 Albumin 4.5 g/dL (3.0-4.8) 08/27/18 23:41 Globulin 3.6 gm/dL 08/27/18 23:41 Albumin/Globulin Ratio 1.2 (1.1-1.8) 08/27/18 23:41 Lipase 63 U/L (23-300) 08/27/18 23:41 Urine Color Straw (YELLOW) 08/27/18 23:56 Urine Appearance Clear (CLEAR) 08/27/18 23:56 Urine pH 6.0 (4.7-8.0) 08/27/18 23:56 Ur Specific [place] 1.010 (1.005-1.035) 08/27/18 23:56 Urine Protein Negative mg/dL (<30 mg/dL) 08/27/18 23:56 Urine Glucose (UA) Negative mg/dL (NEGATIVE) 08/27/18 23:56 Urine Ketones Negative mg/dL (NEGATIVE) 08/27/18 23:56 Urine Blood Negative (NEGATIVE) 08/27/18 23:56 Urine Nitrate Negative (NEGATIVE) 08/27/18 23:56 Urine Bilirubin Negative (NEGATIVE) 08/27/18 23:56 Urine Urobilinogen 0.2 E.U./dL (<1 E.U./dL) 08/27/18 23:56 Ur Leukocyte Esterase Negative Sunny/uL (NEGATIVE) 08/27/18 23:56 <Tino Segal - Last Filed: 08/28/18 01:19> - PA / HANDICRAFT OR [employer]NA[employer] / Resident Statement NERY has reviewed & agrees with the documentation as recorded. NERY has examined the patient and agrees with the treatment plan. <Tino Segal - Last Filed: 08/28/18 01:19> Disposition/Present on Arrival - Present on Arrival Any Indicators Present on Arrival: No History of DVT/PE: No History of Uncontrolled Diabetes: No Urinary Catheter: No History of Decub. Ulcer: No History Surgical Site Infection Following: None - Disposition Have Diagnosis and Disposition been Completed?: Yes Disposition Time: 01:20 Patient Plan: Discharge <Gera Clark - Last Filed: 08/28/18 00:40> <Tino Segal - Last Filed: 08/28/18 01:19> - Disposition Diagnosis: Alcohol abuse, Abdominal pain Disposition: HOME/ ROUTINE Condition: STABLE Discharge Instructions (ExitCare): Alcohol Use - When Is Drinking a Problem? Additional Instructions: Stop drinking alcohol Return to ED for any new symptom Referrals: PCP,NO [Primary Care Provider] - Follow up with primary Ethan Lisa MD [Family Provider] - Follow up with primary Forms: [employer] (Lao)
[2018-08-28 00:54] LABS: BARBITURATES, UR NEGATIVE (NEGATIVE); BENZODIAZEPINES, UR NEGATIVE (NEGATIVE); OPIATES, UR NEGATIVE (NEGATIVE); PHENCYCLIDINE, UR NEGATIVE (NEGATIVE)
[2018-08-28 04:08] VITALS: BP 145/70; PULSE 90; O2SAT 98
--- NOTE | 2018-08-28 11:41 | CARD ---
APPROVED REPORT Date of service: 08/27/2018 EKG Measurement Heart [id number] <Conclusion> Normal sinus rhythm Normal ECG
== END 2018-08-28 04:09 | disposition home or self-care (01) ==
LOC: ED 22:31
DX: F10.10 Alcohol abuse, uncomplicated (principal); R10.31 Right lower quadrant pain; I10 Essential (primary) hypertension; F17.210 Nicotine dependence, cigarettes, uncomplicated; J44.9 Chronic obstructive pulmonary disease, unspecified